=== PATIENT | male | born 1975 | race Caucasian/White ===

== ENCOUNTER → 2024-04-19 | Outpatient (CLI) | payer MEDICARE ==
--- NOTE | 2024-04-19 08:21 | US ---
EXAMINATION TYPE: US abdomen complete DATE OF EXAM: 04/19/2024 COMPARISON: NONE CLINICAL INDICATION: Male, 48 years old with history of R10.84 Abd pain; TECHNIQUE: Grayscale and color Doppler imaging of the abdomen was performed. FINDINGS: EXAM MEASUREMENTS: Liver Length: 16.5 cm Gallbladder Wall: 0.2 cm CBD: 0.4 cm, color Doppler imaging was utilized to isolate the common bile duct for measurement. Spleen: 11.3 cm Right Kidney: 12.5x7.0x6.2 cm Left Kidney: 10.6x7.3x5.3 cm AD TRAFFICKER NOTES: very limited exam due to overlying bowel Pancreas: Obscured by bowel gas Liver: Increased attenuation, decreased visualization of vessels suggestive of fatty infiltrate dif ficult to penetrate Gallbladder: No stones seen, slightly limited due to overlying bowel & rib shadow Evidence for sonographic Roblero's sign: No CBD: wnl Spleen: ?increased attenuation, difficult to visualize Right Kidney: wnl, No hydronephrosis, calculi or masses seen Left Kidney: wnl, No hydronephrosis, calculi or masses seen Upper IVC: Prox: limited due to overlying bowel, wnl as best seen Abd Aorta: Prox: limited, mid/dist: wnl as best visualized Visualized liver is heterogeneously hyperechoic. This limits evaluation for focal masses. Finding lik nicole on basis of diffuse fatty infiltration. IMPRESSION: Suboptimal study without acute findings seen to account for patient's symptoms. Advise CT evaluation if symptoms persist. [facility], , 04/19/2024 8:19 AM
== END | disposition home or self-care (01) ==
LOC: RADUSWWP 07:36
PROVIDERS: ATTEND Family Medicine
DX: R10.84 Generalized abdominal pain (principal)
CPT/HCPCS: 76700